=== PATIENT | male | born 1950 | race African-American/Black ===

== ENCOUNTER 2020-02-06 13:53 | Emergency (ER) | payer OTHER ==
[~2020-02-06] VITALS: Ht 188 cm; Wt 64.0 kg
[2020-02-06 14:00] VITALS: BP 95/60
[2020-02-06 15:36] LABS: HEMATOCRIT. 46.9 % (42.0-52.0); HEMOGLOBIN. 15.9 g/dL (14.0-18.0); MEAN CORPUSCULAR HEMOGLOBIN 30.4 pg (28.0-32.0); MEAN CORPUSCULAR VOLUME 89.7 fL (80.0-94.0); MEAN PLATELET VOLUME 8.7 fl (7.4-10.4); PLATELET 371 x1000/uL (130-400); RED BLOOD CELL COUNT 5.23 mill/uL (4.7-6.1); RED CELL DISTRIBUTION WIDTH 13.5 % (11.6-14.6)
[2020-02-06 15:42] LABS: CHLORIDE 111 mEq/L (98-107)
[2020-02-06 16:48] LABS: PLATELET ESTIMATE NORMAL
== END 2020-02-06 18:01 | disposition left against medical advice (07) ==
LOC: ER 13:53
DX: R07.89 Other chest pain (principal); R55 Syncope and collapse
CPT/HCPCS: 36415; 71045; 80053; 83880; 84484; 85025; 93005; 99285